=== PATIENT | female | born 1995 | race African-American/Black ===

== ENCOUNTER 2019-02-09 21:59 | Emergency (ER) | payer BC ==
[~2019-02-09 21:59] MED LIST: BACTRIM DS1 TAB PO; BENADRYL25 M1 OR; CEPHALEXIN500 MG PO; FLECAINIDE ACE100 MG PO; IBUPROFEN200 M1 OR; LORTAB 10-325 M1 TAB PO
== END 2019-02-09 22:26 | disposition left against medical advice (07) | DRG 951 ==
LOC: ED 21:59 → LWOBS 22:26
DX: Z91.19 Patient's noncompliance with other medical treatment and regimen (principal)

== ENCOUNTER 2021-06-29 21:07 | Emergency (ER) | payer BC ==
[~2021-06-29] VITALS: Ht 165.1 cm; Wt 95.0 kg
[2021-06-29 23:01] LABS: HEMATOCRIT 35.8 % (37.0-47.0); HEMOGLOBIN 11.1 g/dl (12.0-16.0); IMMATURE GRANULOCYTES 0.2 % (0.0-5.0); MEAN CELL VOLUME 83.6 fL CALC (80.0-100.0); MEAN CORPUSCULAR HGB 25.9 pG CALC (26.0-32.0); NEUT# 2.93 thou/uL (2.00-7.15); RED BLOOD COUNT 4.28 mill/uL (4.20-5.60); RED CELL DISTRI WIDTH 14.1 % (11.5-15.5)
[2021-06-29 23:13] LABS: ALBUMIN 3.9 g/dL (3.2-5.0); ALKALINE PHOSPHATASE 65 u/l (38-126); ANION GAP 7 (6-22 (CALC)); BILIRUBIN, TOTAL 0.4 mg/dL (0.0-1.4); BUN 13 mg/dL (7-17); BUN/CREATININE RATIO 16 (12-20 (CALC)); CARBON DIOXIDE 30 mmol/l (22-30); CHLORIDE 104 mmol/l (95-108); CREATININE 0.8 mg/dL (0.5-1.0); GFR > 60 ML/MIN (>=60 (CALC)); GFR FOR AFR.AMER. > 60 ML/MIN (>=60 (CALC)); HCG SERUM/URINE (NEG/POS) NEGATIVE (NEGATIVE); POTASSIUM 3.7 mmol/l (3.5-5.1); SGOT/AST 26 u/l (14-36); SODIUM 137 mmol/l (137-146); TOTAL PROTEIN 7.7 g/dL (6.3-8.2)
[2021-06-29 23:23] LABS: MYOGLOBIN 22 ng/mL (0 - 62)
[2021-06-30 01:03] LABS: URINE BILIRUBIN - DIPSTICK NEGATIVE (NEGATIVE); URINE BLOOD DIPSTICK MODERATE (NEGATIVE); URINE COLOR YELLOW; URINE GLUCOSE - DIPSTICK NEGATIVE (NEGATIVE); URINE KETONE TRACE mg/dL (NEGATIVE); URINE PROTEIN - DIPSTICK NEGATIVE (NEG-TRACE); URINE SPECIFIC GRAVITY 1.025; URINE UROBILINOGEN - DIPSTICK 0.2 E.U./dL (0.2)
[2021-06-30 01:16] LABS: URINE NITRITE - DIPSTICK NEGATIVE (Negative)
[2021-06-30 01:17] LABS: URINE LEUK ESTERASE NEGATIVE (NEGATIVE)
[2021-06-30 01:19] LABS: URINE BACTERIA FEW hpf; URINE EPITHELIAL CELLS FEW EPI/hpf (0-FEW); URINE RBC 25-50 RBC/hpf (0-5)
[2021-06-30] MEDS ORDERED: KEFLEX500 MG PO (01:35)
[2021-06-30 01:58] VITALS: BP 120/58
== END 2021-06-30 02:10 | disposition home or self-care (01) | DRG 313 ==
LOC: ED 21:07
PROVIDERS: Emergency Medicine
DX: R07.89 Other chest pain (principal); N39.0 Urinary tract infection, site not specified; I48.91 Unspecified atrial fibrillation; Z20.822 Contact with and (suspected) exposure to COVID-19

== ENCOUNTER 2021-08-21 18:02 | Emergency (ER) | payer BC ==
[~2021-08-21] VITALS: Ht 165.1 cm; Wt 91.0 kg
[~2021-08-21 18:02] MED LIST changes: +KEFLEX500 MG PO
[2021-08-21] MEDS ORDERED: VOLTAREN75 MG PO (18:39)
[2021-08-21 18:41] VITALS: BP 110/78
== END 2021-08-21 18:45 | disposition home or self-care (01) | DRG 563 ==
LOC: ED 18:02
DX: S83.92XA Sprain of unspecified site of left knee, initial encounter (principal); I48.91 Unspecified atrial fibrillation; X50.0XXA Overexertion from strenuous movement or load, initial encounter; Y93.02 Activity, running

== ENCOUNTER 2022-04-18 18:24 | Emergency (ER) | payer OTHER ==
[~2022-04-18] VITALS: Ht 165.1 cm; Wt 97.7 kg
[2022-04-18] VITALS (8 sets, daily range): BP systolic 113–138; BP diastolic 51–86
[~2022-04-18 18:24] MED LIST changes: +VOLTAREN75 MG PO
[2022-04-18 19:44] LABS: HEMATOCRIT 35.5 % (37.0-47.0); HEMOGLOBIN 11.2 g/dl (12.0-16.0); IMMATURE GRANULOCYTES 0.1 % (0.0-5.0); MEAN CELL VOLUME 83.7 fL CALC (80.0-100.0); MEAN CORPUSCULAR HGB 26.4 pG CALC (26.0-32.0); MEAN CORPUSCULAR HGB CONC 31.5 g/dL CAL (32.0-36.0); NEUT# 3.88 thou/uL (2.00-7.15); RED BLOOD COUNT 4.24 mill/uL (4.20-5.60); RED CELL DISTRI WIDTH 13.9 % (11.5-15.5)
[2022-04-18 19:46] LABS: URINE BILIRUBIN - DIPSTICK NEGATIVE (NEGATIVE); URINE BLOOD DIPSTICK NEGATIVE (NEGATIVE); URINE COLOR YELLOW; URINE GLUCOSE - DIPSTICK NEGATIVE (NEGATIVE); URINE KETONE NEGATIVE (NEGATIVE); URINE LEUK ESTERASE NEGATIVE (NEGATIVE); URINE PH 6.5 (4.5-8.0); URINE PROTEIN - DIPSTICK NEGATIVE (NEG-TRACE); URINE UROBILINOGEN - DIPSTICK 0.2 E.U./dL (0.2)
[2022-04-18 19:52] LABS: URINE NITRITE - DIPSTICK NEGATIVE (Negative)
[2022-04-18 19:55] LABS: ALBUMIN 4.3 g/dL (3.2-5.0); ALKALINE PHOSPHATASE 85 u/l (38-126); ANION GAP 11 (6-22 (CALC)); BUN 12 mg/dL (7-17); BUN/CREATININE RATIO 14 (12-20 (CALC)); CARBON DIOXIDE 27 mmol/l (22-30); CHLORIDE 102 mmol/l (95-108); CPK 188 u/l (30-165); CREATININE 0.8 mg/dL (0.5-1.0); GFR FOR AFR.AMER. > 60 ML/MIN (>=60 (CALC)); GFR OTHER RACES > 60 ML/MIN (>=60 (CALC)); MAGNESIUM 1.7 mg/dL (1.6-2.3); POTASSIUM 3.9 mmol/l (3.5-5.1); SGOT/AST 36 u/l (14-36); SODIUM 137 mmol/l (137-146); TOTAL PROTEIN 7.8 g/dL (6.3-8.2)
== END 2022-04-18 21:58 | disposition home or self-care (01) | DRG 310 ==
LOC: ED 18:24
PROVIDERS: Nurse Practitioner
DX: R00.2 Palpitations (principal)
CPT/HCPCS: J3475

== ENCOUNTER 2022-05-01 03:57 | Emergency (ER) | payer OTHER ==
[2022-05-01] VITALS (8 sets, daily range): BP systolic 98–124; BP diastolic 59–87
[~2022-05-01] VITALS: Ht 165.1 cm; Wt 98.2 kg
[2022-05-01 04:26] LABS: HEMATOCRIT 35.1 % (37.0-47.0); HEMOGLOBIN 10.8 g/dl (12.0-16.0); IMMATURE GRANULOCYTES 0.2 % (0.0-5.0); MEAN CELL VOLUME 83.2 fL CALC (80.0-100.0); MEAN CORPUSCULAR HGB 25.6 pG CALC (26.0-32.0); MEAN CORPUSCULAR HGB CONC 30.8 g/dL CAL (32.0-36.0); NEUT# 2.78 thou/uL (2.00-7.15); RED BLOOD COUNT 4.22 mill/uL (4.20-5.60); URINE BILIRUBIN - DIPSTICK NEGATIVE (NEGATIVE); URINE BLOOD DIPSTICK LARGE (NEGATIVE); URINE COLOR YELLOW; URINE GLUCOSE - DIPSTICK NEGATIVE (NEGATIVE); URINE KETONE NEGATIVE (NEGATIVE); URINE LEUK ESTERASE NEGATIVE (NEGATIVE); URINE PH 5.5 (4.5-8.0); URINE PROTEIN - DIPSTICK NEGATIVE (NEG-TRACE); URINE SPECIFIC GRAVITY >=1.030; URINE UROBILINOGEN - DIPSTICK 0.2 E.U./dL (0.2)
[2022-05-01 04:41] LABS: ALBUMIN 3.8 g/dL (3.2-5.0); ALKALINE PHOSPHATASE 72 u/l (38-126); ANION GAP 11 (6-22 (CALC)); BUN 11 mg/dL (7-17); BUN/CREATININE RATIO 15 (12-20 (CALC)); CARBON DIOXIDE 24 mmol/l (22-30); CHLORIDE 108 mmol/l (95-108); CREATININE 0.7 mg/dL (0.5-1.0); GFR FOR AFR.AMER. > 60 ML/MIN (>=60 (CALC)); GFR OTHER RACES > 60 ML/MIN (>=60 (CALC)); MAGNESIUM 1.9 mg/dL (1.6-2.3); POTASSIUM 3.9 mmol/l (3.5-5.1); SGOT/AST 34 u/l (14-36); SODIUM 140 mmol/l (137-146); TOTAL PROTEIN 7.3 g/dL (6.3-8.2); URINE NITRITE - DIPSTICK NEGATIVE (Negative)
[2022-05-01 04:43] LABS: BILIRUBIN, TOTAL 0.1 mg/dL (0.0-1.4); URINE BACTERIA FEW hpf; URINE MUCUS FEW hpf (NONE-FEW); URINE RBC 25-50 RBC/hpf (0-5); URINE SQUAMOUS EPITHELIAL CELL FEW EPI/hpf (0-FEW)
[2022-05-01 04:53] LABS: MYOGLOBIN 20 ng/mL (0 - 62)
[2022-05-01] MEDS ORDERED: FLECAINIDE100 MG PO (05:26)
== END 2022-05-01 05:43 | disposition home or self-care (01) | DRG 310 ==
LOC: ED 03:57
PROVIDERS: Family Medicine
DX: I48.91 Unspecified atrial fibrillation (principal); T46.2X6A Underdosing of other antidysrhythmic drugs, initial encounter; Z91.138 Patient's unintentional underdosing of medication regimen for other reason

== ENCOUNTER 2022-11-27 03:56 | Emergency (ER) | payer SELFPAY ==
[~2022-11-27] VITALS: Ht 165.1 cm; Wt 100.0 kg
[~2022-11-27 03:56] MED LIST changes: +FLECAINIDE100 MG PO
[2022-11-27 04:29] VITALS: BP 100/67
[2022-11-27 04:31] VITALS: BP 100/58
[2022-11-27 04:35] VITALS: BP 96/68
[2022-11-27 04:46] LABS: BASO% 0.6 % (0-3); EOS% 3.7 % (0-8); HEMATOCRIT 40.5 % (37.0-47.0); HEMOGLOBIN 12.4 g/dl (12.0-16.0); IMMATURE GRANULOCYTES 0.2 % (0.0-5.0); LYMPH% 47.9 % (15-41); MEAN CORPUSCULAR HGB 25.4 pG CALC (26.0-32.0); MEAN CORPUSCULAR HGB CONC 30.6 g/dL CAL (32.0-36.0); MONO% 11.2 % (2-13); NEUT# 2.38 thou/uL (2.00-7.15); NEUT% 36.4 % (42-76); RED BLOOD COUNT 4.88 mill/uL (4.20-5.60); RED CELL DISTRI WIDTH 14.2 % (11.5-15.5)
[2022-11-27 04:59] LABS: ALKALINE PHOSPHATASE 60 u/l (38-126); ANION GAP 9 (6-22 (CALC)); BUN 11 mg/dL (7-17); BUN/CREATININE RATIO 16 (12-20 (CALC)); CARBON DIOXIDE 25 mmol/l (22-30); CHLORIDE 108 mmol/l (95-108); CREATININE 0.7 mg/dL (0.5-1.0); GFR FOR AFR.AMER. > 60 ML/MIN (>=60 (CALC)); GFR OTHER RACES > 60 ML/MIN (>=60 (CALC)); POTASSIUM 4.3 mmol/l (3.5-5.1); SGOT/AST 28 u/l (14-36); SODIUM 138 mmol/l (137-146); TOTAL PROTEIN 7.3 g/dL (6.3-8.2)
[2022-11-27 05:00] VITALS: BP 104/75
[2022-11-27 05:00] LABS: ACT PARTIAL THROMBO TIME 27.9 SECONDS (20.0-32.5); INTERNATIONAL NORMALIZED RATIO 0.9 RATIO (0.7-1.3); PROTHROMBIN TIME 9.3 SECONDS (9.0-12.5)
[2022-11-27 05:03] LABS: BILIRUBIN, TOTAL 0.2 mg/dL (0.02-1.3)
[2022-11-27] MEDS ORDERED: FLECAINIDE100 MG PO (06:01)
[2022-11-27 06:15] VITALS: BP 104/75
== END 2022-11-27 06:31 | disposition home or self-care (01) | DRG 310 ==
LOC: ED 03:56
PROVIDERS: Family Medicine
DX: I48.91 Unspecified atrial fibrillation (principal); T46.2X6A Underdosing of other antidysrhythmic drugs, initial encounter; Z91.128 Patient's intentional underdosing of medication regimen for other reason